=== PATIENT | female | born 1960 | race Caucasian/White ===

== ENCOUNTER 2017-08-02 09:08 | Emergency (ER) | payer OTHER ==
--- NOTE | 2017-08-02 09:15 | EDPHY ---
H & P Time Seen by Provider: 08/02/17 09:10 Constitutional: Initial Vital Signs Temperature (C) 36.9 C 08/02/17 09:22 Heart Rate 68 08/02/17 09:22 Respiratory Rate 16 08/02/17 09:22 Blood Pressure 120/72 08/02/17 09:22 O2 Sat (%) 95 08/02/17 09:22 O2 Delivery Mode Room Air Allergies/Adverse Reactions: No Known Allergies Allergy (Unverified 08/02/17 09:21) Home Medications: Medication Instructions Recorded Azithromycin [Zithromax] 250 mg PO DAILY #6 tab 08/02/17 Citalopram 08/02/17 Proair Hfa 08/02/17 Symbicort 80-4.5 Mcg Inhaler 08/02/17 methylPREDNISolone [Medrol Dose 1 each PO AD #1 ea 08/02/17 Cresencio] Medical Decision Making - Diagnostics Imaging Results: Imaging Impressions Abdomen CT 08/02/17 09:30 Impression: 1. Atherosclerotic aorta without aneurysm. 2. No CT evidence of appendicitis, abscess or bowel obstruction. 3. Right peripancreatic calcifications which may be secondary to old chronic pancreatitis or benign calcified lymph nodes. No significant adenopathy. 4. Levoscoliosis with degenerative lumbar spine and L3-L4 grade 1 anterolisthesis resulting in mild to moderate central canal stenosis. 5. Right lower lobe 12 x 4 mm pulmonary nodule versus parenchymal scarring for which comparison with old studies or follow up CT chest is recommended in 3 months to ensure stability. 6. Uterine leiomyomata. 7. Limited due to lack of oral contrast and retroperitoneal fat. Findings and recommendations discussed with Emergency Department physician, Lui Christianson MD, at 1052 hours, 08/02/2017. Final report concurs with initial preliminary interpretation. Chest X-Ray 08/02/17 09:30 Impression: Clear lungs. No acute process. Imaging: Discussed imaging studies w/ health nurse Radiologist, I viewed and interpreted images myself ED Course/Re-evaluation: CHIEF COMPLAINT: Chest pain, abdominal pain HISTORY OF PRESENT ILLNESS: This patient is a 56 year old female arriving via EMS for evaluation of chest pain, abdominal pain, and diarrhea. She has not felt well for the last five days with nausea and lack of appetite. She has had diarrhea for the past four days. She endorses increased stress lately. Yesterday, she walked four miles and did not experience any chest pain or shortness of breath. This morning around 8:00, and began to feel more poorly and states "everything went foggy". She endorses some chest discomfort and shaking as if chilled, but she does not feel cold. EMS administered IVF in transport as patient's BP was 68/39 on arrival. Her vitals are stable and within normal limits currently. She has a chronic cough but endorses increased productive cough in the past several days. She has had pneumonia in the past and states her current symptoms feel similar. The patient denies history of abdominal surgeries. She denies fever, vomiting, hematuria, blood in her stool, or other associated symptoms. REVIEW OF SYSTEMS: A 10 point review of systems was performed and is negative with the exception of the elements mentioned in the history of present illness. PHYSICAL EXAM: HR, BP, O2 Sat, RR. Temp noted General Appearance: Patient has intermittent episodes of rigor-like shaking. Alert, well hydrated, appropriate, and non-toxic appearing. Head: Atraumatic without scalp tenderness or obvious injury Eyes: Pupils equal, round, reactive to light and accommodation, EOMI, no trauma , no injection. Ears: Clear bilaterally, no perforation, normal landmarks Nose: Atraumatic, no rhinorrhea, clear. Throat: There is no erythema or exudates, no lesions, normal tonsils, mucus membranes moist. Neck: Supple, 2+ carotid upstroke, nontender, no lymphadenopathy. Respiratory: Diminished lung sounds in left base. No retractions, no distress, no wheezes, and no accessory muscle use. Cardiovascular: Regular rate and rhythm, no murmurs, rubs, or gallops. Bilateral carotid, radial, dorsalis pedis, and posterior tibial pulses intact. Good capillary refill all extremities. Gastrointestinal: Right upper quadrant tenderness. Abdomen is soft, non- distended, no masses, no rebound, no guarding, no peritoneal signs. Musculoskeletal: Normal active ROM of all extremities, atraumatic. Neurological: Alert, appropriate, and interactive. The patient has normal DTRs and non-focal cranial nerves, motor, sensory, and cerebellar exam. Skin: No rashes, good turgor, no nodules on palpation. Past medical history: Anxiety (escitalopram), COPD (ProAir, Symbicort). History of tachycardia in 1999. History of pneumonia. Past surgical history: Bladder surgery. Family history: Noncontributory. Social history: Current cigarette use. Single. Lives in [place]. Son at bedside. DIAGNOSTICS/PROCEDURES/CRITICAL CARE TIME: The 12 lead EKG was interpreted by myself. See hard copy and/or "tracemaster" electronic copy for interpretation. Sinus rhythm. DIFFERENTIAL DIAGNOSIS: The differential diagnosis for the patient's abdominal pain included but was not limited to ovarian cyst, pelvic inflammatory disease, ovarian torsion, urinary tract infection, ectopic , cholecystitis, and appendicitis. MEDICAL DECISION [id number] y/o female presets with abdominal pain, chest discomfort, and five days history of nausea and diarrhea. RUQ tenderness on exam. Additionally, I note decreased breath sounds in the lower left lobe. Plan for chest x-ray, CT abdomen , EKG, labs including CBC, chemistries, liver, lipase, coag, lactic acid, I- stat. EKG shows sinus rhythm. 09:48 Reviewed I-stat. Patient is mildly hyponatremic. Reviewed chest x-ray. Negative for acute processes. Lactic acid negative. Labs otherwise largely unremarkable. 10:[address] Wall, radiologist. CT abdomen negative for acute intraabdominal processes. Linear density noted in left lung base. Patient's presentation is consistent with early pneumonia based on exam findings and CT. Plan to discharge home in good condition with prescription for z-pack and Medrol Dosepak. Follow up and return precautions discussed. She is comfortable with this plan. - Data Points Laboratory Results: Laboratory Results 08/02/17 09:15 08/02/17 08/02/17 08/02/17 10:07 09:53 09:41 WBC RBC Hgb POC Hgb 13.6 gm/dL gm/dL (12.6-16.3) Hct POC Hct 40 % % (38-47) MCV MCH MCHC RDW Plt Count MPV Neut % (Auto) Lymph % (Auto) Orange % (Auto) Eos % (Auto) Baso % (Auto) Nucleat RBC Rel Count Absolute Neuts (auto) Absolute Lymphs (auto) Absolute Monos (auto) Absolute Eos (auto) Absolute Basos (auto) Absolute Nucleated RBC Immature Gran % Immature Gran # RBC/WBC/PLT Morphology Platelet Estimate PT 13.4 SEC SEC (12.0-15.0) INR 1.00 (0.83-1.16) APTT 27.3 SEC SEC (23.0-38.0) VBG Lactic Acid POC Sodium 129 mEq/L L mEq/L (135-145) Sodium Pending POC Potassium 4.0 mEq/L mEq/L (3.3-5.0) Potassium Pending POC Chloride 94 mEq/L L mEq/L (97-110) Chloride Pending Carbon Dioxide Pending Anion Gap Pending POC BUN 3 mg/dL L mg/dL (7-23) BUN Pending Creatinine Pending POC Creatinine 0.5 mg/dL L mg/dL (0.6-1.0) Estimated GFR Pending Glucose Pending POC Glucose 129 mg/dL H mg/dL (70-100) Calcium Pending Total Bilirubin Pending Conjugated Bilirubin Pending Unconjugated Bilirubin Pending AST Pending ALT Pending Alkaline Phosphatase Pending Total Protein Pending Albumin Pending Lipase Pending Beta HCG, Qual 08/02/17 08/02/17 08/02/17 09:35 09:15 09:15 WBC RBC Hgb POC Hgb Hct POC Hct MCV MCH MCHC RDW Plt Count MPV Neut % (Auto) Lymph % (Auto) Orange % (Auto) Eos % (Auto) Baso % (Auto) Nucleat RBC Rel Count Absolute Neuts (auto) Absolute Lymphs (auto) Absolute Monos (auto) Absolute Eos (auto) Absolute Basos (auto) Absolute Nucleated RBC Immature Gran % Immature Gran # RBC/WBC/PLT Morphology Platelet Estimate PT REJ INR REJ APTT REJ VBG Lactic Acid 1.0 mmol/L mmol/L (0.7-2.1) POC Sodium Sodium POC Potassium Potassium POC Chloride Chloride Carbon Dioxide Anion Gap POC BUN BUN Creatinine POC Creatinine Estimated GFR Glucose POC Glucose Calcium Total Bilirubin Conjugated Bilirubin Unconjugated Bilirubin AST ALT Alkaline Phosphatase Total Protein Albumin Lipase Beta HCG, Qual NEGATIVE 08/02/17 08/02/17 09:15 09:15 WBC 8.31 10^3/uL 10^3/uL (3.80-9.50) RBC 3.88 10^6/uL L 10^6/uL (4.18-5.33) Hgb 13.2 g/dL g/dL (12.6-16.3) POC Hgb Hct 37.4 % L % (38.0-47.0) POC Hct MCV 96.4 fL fL (81.5-99.8) MCH 34.0 pg pg (27.9-34.1) MCHC 35.3 g/dL g/dL (32.4-36.7) RDW 12.2 % % (11.5-15.2) Plt Count 273 10^3/uL 10^3/uL (150-400) MPV 9.2 fL fL (8.7-11.7) Neut % (Auto) 81.8 % H % (39.3-74.2) Lymph % (Auto) 5.7 % L % (15.0-45.0) Orange % (Auto) 11.0 % % (4.5-13.0) Eos % (Auto) 0.5 % L % (0.6-7.6) Baso % (Auto) 0.8 % % (0.3-1.7) Nucleat RBC Rel Count 0.0 % % (0.0-0.2) Absolute Neuts (auto) 6.80 10^3/uL H 10^3/uL (1.70-6.50) Absolute Lymphs (auto) 0.47 10^3/uL L 10^3/uL (1.00-3.00) Absolute Monos (auto) 0.91 10^3/uL H 10^3/uL (0.30-0.80) Absolute Eos (auto) 0.04 10^3/uL 10^3/uL (0.03-0.40) Absolute Basos (auto) 0.07 10^3/uL 10^3/uL (0.02-0.10) Absolute Nucleated RBC 0.00 10^3/uL 10^3/uL (0-0.01) Immature Gran % 0.2 % % (0.0-1.1) Immature Gran # 0.02 10^3/uL 10^3/uL (0.00-0.10) RBC/WBC/PLT Morphology TNP Platelet Estimate TNP PT INR APTT VBG Lactic Acid POC Sodium Sodium REJ POC Potassium Potassium REJ POC Chloride Chloride REJ Carbon Dioxide REJ Anion Gap REJ POC BUN BUN REJ Creatinine REJ POC Creatinine Estimated GFR REJ Glucose REJ POC Glucose Calcium REJ Total Bilirubin REJ Conjugated Bilirubin REJ Unconjugated Bilirubin REJ AST REJ ALT REJ Alkaline Phosphatase REJ Total Protein REJ Albumin REJ Lipase REJ Beta HCG, Qual Medications Given: Discontinued Medications Azithromycin (Zithromax) 500 mg PO EDNOW ONE PRN Reason: Protocol Stop: 08/02/17 10:50 Last Admin: 08/02/17 11:03 Dose: 500 mg Sodium Chloride (Ns) 1,000 mls @ 0 mls/hr IV EDNOW ONE; Wide Open PRN Reason: Protocol Stop: 08/02/17 09:30 Last Admin: 08/02/17 09:50 Dose: 1,000 mls Ondansetron HCl (Zofran Odt 4 Mg Prepack#2) 1 btl TAKEHOME EDNOW ONE Stop: 08/02/17 10:50 Last Admin: 08/02/17 11:02 Dose: 1 btl Point of Care Test Results: 08/02/17 09:41 POC Sodium 129 L POC Potassium 4.0 POC Chloride 94 L POC BUN 3 L POC Creatinine 0.5 L POC Glucose 129 H Departure - Departure Disposition: Home, Routine, Self-Care Clinical Impression: Pneumonia Qualifiers: Pneumonia type: due to unspecified organism Laterality: left Lung location: lower lobe of lung Qualified Code(s): J18.1 - Lobar pneumonia, unspecified organism Condition: Good Instructions: Azithromycin (By mouth), Methylprednisolone (By mouth), Pneumonia (ED) Additional Instructions: 1. Take Z-pack as prescribed. It is important to finish your entire course of antibiotics. 2. Take Medrol Dosepak as prescribed. 2. Follow up with your primary care provider in 2-3 days. 3. Return to the emergency department for fever, chest pain, difficulty breathing, or other worsening of condition. Referrals: Griffin Cherry MD [Medical Doctor] - As per Instructions Prescriptions: Azithromycin [Zithromax] 250 mg PO DAILY #6 tab methylPREDNISolone [Medrol Dose Cresencio] 1 each PO AD #1 ea Report Scribed for: Lui Christianson Report Scribed by: Meenakshi Goyal Date of Report: 08/02/17 Time of Report: 10:43
--- NOTE | 2017-08-02 09:16 | CPEKG ---
Heart Rate: 67 RR Interval: 896 P-R Interval: 144 QRSD Interval: 86 QT Interval: 448 QTC Interval: 473 P Nebo: 34 QRS Nebo: 83 T Wave Nebo: 38 EKG Severity - ABNORMAL ECG - EKG Impression: SINUS RHYTHM EKG Impression: CONSIDER ANTEROSEPTAL INFARCT Electronically Signed By: Lui Christianson 02-Aug-2017 13:51:28
[2017-08-02] MEDS ORDERED: NS 1,000 ML IV ONE (09:29)
[2017-08-02] MEDS ORDERED: IOPAMIDOL (ISOVUE-300) 100 ML BTL ONE (09:35)
[2017-08-02 09:44] LABS: PLATELET COUNT 273 10^3/uL (150-400)
[2017-08-02 10:30] LABS: PROTIME(PATIENT) 13.4 SEC (12.0-15.0)
[2017-08-02] MEDS ORDERED: AZITHROMYCIN 250 MG TAB PO ONE (10:49)
[2017-08-02] MEDS ORDERED: ONDANSETRON 4MG PREPACK#2 BTL TAKEHOME ONE (10:49)
[2017-08-02 10:59] VITALS: BP 128/77
== END 2017-08-02 11:17 | disposition home or self-care (01) ==
LOC: EDUNIT#
DX: J18.9 Pneumonia, unspecified organism (principal); F17.210 Nicotine dependence, cigarettes, uncomplicated
CPT/HCPCS: 82947-QW; Q9967

== ENCOUNTER 2017-08-03 13:32 | Emergency (ER) | payer OTHER ==
[2017-08-03] MEDS ORDERED: NS 1,000 ML IV ONE (14:05)
--- NOTE | 2017-08-03 14:50 | EDPHY ---
H & P Smoking Status: Current every day smoker Time Seen by Provider: 08/03/17 13:45 HPI/ROS: This patient was seen at [facility] emergency department yesterday, diagnosed with pneumonia complicated by dehydration and hyponatremia attributable to diarrhea. EMS was dispatched to her home where she was initially hypotensive but with IV fluids was normotensive a discharge. She ruled out for sepsis had linear consolidation or left base After workup included CT abdomen pelvis which was negative for any other significant acute pathology. Patient also has a history of COPD and has a chronic cough. Her cough has become productive but she reports improvement over the past 24 hr since she room was initiated with Zithromax. She has diminished productivity in frequency of her cough. Her shortness of breath is improved and is at baseline currently. She used her albuterol MDI an hour and half prior to coming in. She no longer feels lightheaded. She does have ongoing fatigue and malaise that is mild-to- moderate. I reviewed yesterday's documentation from [facility] emergency department visit. She came in today by private vehicle. She was encouraged to have a recheck today. She is not currently have a primary care physician. ROS: Constitutional: No fevers or chills since Zithromax was initiated yesterday. HEENT: No URI symptoms Pulmonary: No hemoptysis. No pleuritic pain. No respiratory distress. Cardiovascular: No lightheadedness since yesterday. She had leg aches that have resolved over the past 24 hr. GI: Diarrhea persists she has had 3 episodes so far today's or watery. No bloody stools or tarry stools. No abdominal pain today. : No complaints Neuro: No confusion or headache. 10 point ROS is otherwise negative. ([place]) Past Medical/Surgical History: COPD ([place]) Physical Exam: Orthostatic vitals are negative for change. Her vital signs are normal exception of an O2 sat of 91% on room air General Appearance: Alert, no distress. Eyes: Pupils equal and round no pallor or injection. ENT, Mouth: Mucous membranes moist. Respiratory: Mild bilateral wheeze at the bases with associated mild rhonchi. No rales. No respiratory distress or increased work of breathing. Cardiovascular: Regular rate and rhythm. No murmur gallop rub. No JVD. No peripheral edema or leg tenderness. Gastrointestinal: Abdomen is soft and nontender, no masses, bowel sounds normal. Neurological: GCS 15. Skin: Warm and dry, no rashes. Musculoskeletal: Neck is supple nontender. Extremities are symmetrical, full range of motion. Psychiatric: Mood and affect are normal DIFFERENTIAL DIAGNOSIS: After history and physical exam differential diagnosis was considered for re-evaluate hyponatremia. Rule out other metabolic abnormalities. No known community-acquired pneumonia and COPD. Mild dehydration ([place]) Constitutional: Initial Vital Signs Temperature (C) 36.8 C 08/03/17 13:40 Heart Rate 69 08/03/17 13:40 Respiratory Rate 16 08/03/17 13:40 Blood Pressure 130/68 H 08/03/17 13:40 O2 Sat (%) 91 L 08/03/17 13:40 O2 Delivery Mode Room Air Allergies/Adverse Reactions: No Known Allergies Allergy (Verified 08/03/17 13:38) Home Medications: Medication Instructions Recorded Azithromycin [Zithromax] 250 mg PO DAILY #6 tab 08/02/17 Citalopram 08/02/17 Proair Hfa 08/02/17 Symbicort 80-4.5 Mcg Inhaler 08/02/17 methylPREDNISolone [Medrol Dose 1 each PO AD #1 ea 08/02/17 Cresencio] MDM/Departure - MDM Medications Given: Discontinued Medications Sodium Chloride (Ns) 1,000 mls @ 0 mls/hr IV EDNOW ONE; Wide Open PRN Reason: Protocol Stop: 08/03/17 14:06 Last Admin: 08/03/17 14:30 Dose: 1,000 mls ED Course/Re-evaluation: IV normal saline bolus Initial lab draw was lysed. The lab requested 2nd blood draw. I discussed this case with Dr. Baker, [facility] emergency physician at 3:00 p.m. With basic metabolic panel results pending. Discussion: Patient with significant improvement since yesterday after treatment initiated for mild community-acquired pneumonia complicated by dehydration from diarrhea. Anticipate the patient's discharge home provided no significant abnormalities on basic metabolic panel ([place]) 3:50 p.m. the patient's lab work is improved compared to yesterday. She tells me that she feels completely well and does not feel sick anymore at all. She states that she was able to sleep for 14 hr yesterday. I encouraged her to continue sleeping today. She is eager to go home and declines further workup or testing. She will continue taking antibiotics. (Chong Baker) - Depart Disposition: Home, Routine, Self-Care Clinical Impression: Dehydration Community acquired pneumonia Qualifiers: Laterality: left Lung location: lower lobe of lung Qualified Code(s): J18.1 - Lobar pneumonia, unspecified organism Diarrhea Qualifiers: Diarrhea type: unspecified type Qualified Code(s): R19.7 - Diarrhea, unspecified Condition: Good Instructions: How to Stop Smoking (ED), Acute Diarrhea (ED), Community Acquired Pneumonia (ED) Additional Instructions: Diagnosis: 1. Community-acquired pneumonia 2. Diarrhea 3. Dehydration Plan: Continue Zithromax antibiotic in your other medications. Start a probiotic Start Imodium for diarrhea Continue Zofran if needed for nausea Establish primary care physician with outpatient physician listed below. Call today to arrange follow-up appointment for sometime within the next week for recheck return. Return emergency department for any significant worsening despite treatment plan. Referrals: NONE *PRIMARY CARE P,. [Primary Care Provider] - As per Instructions Sadie Quinonez MD [Medical Doctor] - As per Instructions
[2017-08-03 15:38] VITALS: BP 129/65
== END 2017-08-03 16:00 | disposition home or self-care (01) ==
LOC: CED 13:32
DX: J18.1 Lobar pneumonia, unspecified organism (principal); E86.0 Dehydration; R19.7 Diarrhea, unspecified; E86.9 Volume depletion, unspecified; J44.9 Chronic obstructive pulmonary disease, unspecified; F17.200 Nicotine dependence, unspecified, uncomplicated
CPT/HCPCS: 80048-PO

== ENCOUNTER 2017-11-08 18:19 | Emergency (ER) | payer OTHER ==
--- NOTE | 2017-11-08 18:57 | EDPHY ---
H & P Stated Complaint: dental pain after dental work 2 weeks ago, with swelling left side Time Seen by Provider: 11/08/17 18:29 HPI/ROS: Chief Complaint: Jaw pain HPI: 57-year-old woman presenting with 2 weeks of left lower jaw pain which got significantly worse today. Patient states jaw pain started after she had 2 temporary crowns placed 1 of the top in 1 the bottom on the left side 2 weeks ago. She did take some of her dogs OxyContin without any relief. She has also taken 800 mg of ibuprofen at 4 o'clock this afternoon. It hurts to chew. Is having some pain in her ear as well. No fevers or chills. Is complaining of some swelling on the outside of the jaw. No difficulty swallowing. No difficulty breathing. She has an appoint with her dentist at noon tomorrow. ROS: 10 point Review of Systems is negative except as noted in the HPI. Social History: Positive smoking Family History: non-contributory Physical Exam: Gen: Awake, Alert, No Distress Mouth: She has mild left lower dental test percussion. Is minimal gingival swelling without erythema or mass. No submandibular tenderness. No temporomandibular joint disorder. No trismus. Ear: Small amount of blood ear canal. No infection, TMs normal. Skin: No rash - Medical/Surgical History Hx Asthma: No Hx Chronic Respiratory Disease: No Hx Diabetes: No Hx Cardiac Disease: No Hx Renal Disease: No Hx Cirrhosis: No Hx Alcoholism: No Hx HIV/AIDS: No Hx Splenectomy or Spleen Trauma: No Other PMH: COPD, brain surgery 2004, - Social History Smoking Status: Current every day smoker Constitutional: Initial Vital Signs Temperature (C) 37.3 C 11/08/17 18:25 Heart Rate 81 11/08/17 18:25 Respiratory Rate 18 11/08/17 18:25 Blood Pressure 156/82 H 11/08/17 18:25 O2 Sat (%) 92 11/08/17 18:25 O2 Delivery Mode Room Air Allergies/Adverse Reactions: No Known Allergies Allergy (Verified 11/08/17 18:24) Home Medications: Medication Instructions Recorded Citalopram 08/02/17 Proair Hfa 08/02/17 Symbicort 80-4.5 Mcg Inhaler 08/02/17 [place] 5/325 (*) 11/08/17 Medical Decision Making Procedures: Procedure: Regional anesthesia. A dental block was performed for left lower dental pain. The block was performed with Marcaine with epinephrine. The patient experienced complete pain relief. The procedure was performed by myself. ED Course/Re-evaluation: 57-year-old with a temporary crown in place with dental pain. Will start her on oral antibiotics. Dental block is been performed. She will follow up with a dentist as scheduled tomorrow. Departure - Departure Disposition: Home, Routine, Self-Care Clinical Impression: Dental abscess Condition: Good Instructions: Dental Abscess (ED) Additional Instructions: Follow up with your dentist tomorrow as scheduled. Do not chew until your seen by your dentist. Referrals: NONE *PRIMARY CARE P,. [Primary Care Provider] - As per Instructions
[2017-11-08] MEDS ORDERED: AMOXICILLIN 250 MG PREPACK#4 BTL TAKEHOME ONE (18:58)
[2017-11-08 19:15] VITALS: BP 142/78
== END 2017-11-08 19:15 | disposition home or self-care (01) ==
LOC: CED 18:19
PROC: 3E0X3BZ Introduction of Anesthetic Agent into Cranial Nerves, Percutaneous Approach (ICD-10-PCS; principal; 2017-11-08)
DX: K04.7 Periapical abscess without sinus (principal); F17.200 Nicotine dependence, unspecified, uncomplicated